=== PATIENT | female | born 1980 | race American Indian/Alaskan Native ===

== ENCOUNTER 2017-09-15 10:37 | Emergency (ER) | payer MEDICAID, OTHER ==
[2017-09-15 10:38] VITALS: BMI 29.0
[2017-09-15 11:02] VITALS: TEMP 98.6; O2SAT 100
[2017-09-15] MEDS ORDERED: Sodium Chloride 0.9% 1,000 ML IV STA (11:30)
[2017-09-15 12:02] LABS: BASO # 0.05 K/mm3 (0.0-2.0); BASO % 0.8 % (0.0-3.0); EOS # 0.1 (0.0-0.7); EOS % 1.7 % (1.5-5.0); GRAN # 2.88 (1.4-6.5); GRAN % 45.4 % (50.0-68.0); HEMATOCRIT 39.3 % (36.0-48.0); LYMPH # 2.9 (1.2-3.4); LYMPH % 46.1 % (22.0-35.0); MEAN CELL VOLUME 80.4 fl (80.0-105.0); MEAN CORPUSCULAR HEMOGLOBIN 25.6 pg (25.0-35.0); MEAN CORPUSCULAR HGB CONC 31.8 g/dl (31.0-37.0); MEAN PLATELET VOLUME 10.3 fl (7.0-11.0); MONO # 0.4 (0.1-0.6); WHITE BLOOD COUNT 6.4 10^3/ul (4.5-11.0)
[2017-09-15 12:12] LABS: ALB/GLOB RATIO 1.2 (1.1-1.8); ALKALINE PHOSPHATASE 75 U/L (38-126); ALT/SGPT 35 U/L (7-56); AST/SGOT 25 U/L (14-36); BILIRUBIN,TOTAL 0.6 mg/dL (0.2-1.3); BLOOD UREA NITROGEN 19 mg/dL (7-21); CALCIUM 9.3 mg/dL (8.4-10.5); CARBON DIOXIDE 31 mmol/L (21-33); CHLORIDE 103 mmol/L (98-107); GFR AFRICAN-AMERICAN > 60; GLUCOSE,RANDOM 96 mg/dL (70-110); POTASSIUM 3.9 mmol/L (3.6-5.0); SODIUM 142 mmol/L (132-148); TOTAL PROTEIN 7.7 g/dL (5.8-8.3)
[2017-09-15 12:25] LABS: INR 1.1 (0.93-1.08); PARTIAL THROMBOPLASTIN TIME 32.1 Seconds (25.1-36.5)
--- NOTE | 2017-09-15 12:39 | ED PDOC ---
Arrival/HPI - General Chief Complaint: GI Problem Time Seen by Provider: 09/15/17 11:30 Historian: Patient - History of Present Illness Narrative History of Present Illness (Text): 09/15/17 12:34 37-year-old female presents today with a 1 week history of intermittent rectal bleeding. Patient states she is noticed on and off for the past week when she has a bowel movement she sees bright red blood on the toilet paper and sometimes on the stool. She denies any rectal pain. Denies abdominal pain. No nausea vomiting dizziness or weakness. Denies chest pain or shortness of breath. Patient denies constipation. Patient denies straining. No other complaints. Time/Duration: 1 week Symptom Course: Intermittent Quality: Other (NO pain) Past Medical History - Provider Review Nursing Documentation Reviewed: Yes - Travel History Have you recently traveled outside [place] w/in the past 3 mons?: No - Past History Past History: No Previous - Infectious Disease Hx of Infectious Diseases: None - Tetanus Immunization Tetanus Immunization: Unknown - Past Medical History Past Medical History: No Previous - Psychiatric Hx Depression: No Hx Substance Use: No - Past Surgical History Past Surgical History: No Previous - Surgical History Hx Section: Yes (x1) - Anesthesia Hx Anesthesia: No - Suicidal Assessment Feels Threatened In Home Enviroment: No Family/Social History - Physician Review Nursing Documentation Reviewed: Yes Family/Social History: Unknown Family HX Smoking Status: Never Smoked Hx Alcohol Use: Yes Frequency of alcohol use: Socially Hx Substance Use: No Hx Substance Use Treatment: No Allergies/Home Meds Allergies/Adverse Reactions: Allergies No Known Allergies Allergy (Verified 09/15/17 11:02) Home Medications: Home Meds Medication Instructions Recorded Confirmed No Known Home Med 09/15/17 09/15/17 Review of Systems - Review of Systems Constitutional: absent: Fatigue, Fevers Respiratory: absent: SOB, Cough Cardiovascular: absent: Chest Pain, Palpitations Gastrointestinal: absent: Abdominal Pain, Constipation, Diarrhea, Nausea, Vomiting Genitourinary Female: absent: Dysuria, Frequency, Hematuria, Vaginal Discharge Musculoskeletal: absent: Arthralgias, Back Pain, Neck Pain Skin: absent: Rash, Pruritis Neurological: absent: Headache, Dizziness Psychiatric: absent: Anxiety, Depression Physical Exam Vital Signs Reviewed: Yes Vital Signs Temp Pulse Resp BP Pulse Ox 09/15/17 12:38 85 17 150/68 100 09/15/17 11:15 151/70 H 09/15/17 10:57 98.6 F 79 16 160/112 H 100 Temperature: Afebrile Blood Pressure: Hypertensive Pulse: Regular Respiratory Rate: Normal Appearance: Positive for: Well-Appearing, Non-Toxic, Comfortable Pain Distress: None Mental Status: Positive for: Alert and Oriented X 3 - Systems Exam Head: Present: Atraumatic Mouth: Present: Moist Mucous Membranes Neck: Present: Normal Range of Motion Respiratory/Chest: Present: Clear to Auscultation, Good Air Exchange. No: Respiratory Distress, Accessory Muscle Use Cardiovascular: Present: Regular Rate and Rhythm, Normal S1, S2. No: Murmurs Abdomen: Present: Normal Bowel Sounds. No: Tenderness, Distention, Peritoneal Signs, Rebound, Guarding Rectal: Present: Hemorrhoids, Normal Rectal Tone, Other (CHAPARONED BY [place]) . No: Occult Blood, Rectal Tenderness, Gross Blood, Melena, Fissures, Nodule/ Mass/Lesions Back: Present: Normal Inspection. No: CVA Tenderness, Midline Tenderness, Paraspinal Tenderness Upper Extremity: Present: Normal ROM Lower Extremity: Present: Normal ROM Neurological: Present: GCS=15 Skin: Present: Warm, Dry, Normal Color. No: Rashes Psychiatric: Present: Alert, Oriented x 3 Medical Decision Making ED Course and Treatment: 09/15/17 12:36 37-year-old female with intermittent rectal bleeding 1 week CBC within normal limits CMP within normal limits Rectal exam: no gross blood, small non tender hemorrhoids noted. pt reassessment; pt is non toxic well appearing; no distress. slightly hypertensive. discussed results in depth with patient; advised f/u with GI specialist. advised immediate return if bleeding continues, dizziness or weakness, abdominal pain or if any other concerning symptoms develop. Impression: rectal bleeding increase fluids Follow up with the GI specialist within the next 2 days regarding your intermittent rectal bleeding Follow up with the primary care physician within the next 2 days return immediately if symptoms worsen,persist or if new symptoms develop; high fevers, abdominal pain, bleeding, dizziness, weakness or if any other concerning symptoms develop. - Lab Interpretations Lab Results: 09/15/17 11:40 09/15/17 11:40 Lab Results 09/15/17 11:40: PT 12.1, INR 1.10 H, APTT 32.1 09/15/17 11:40: WBC 6.4, RBC 4.89, Hgb 12.5, Hct 39.3, MCV 80.4, MCH 25.6, MCHC 31.8, RDW 15.0 H, Plt Count 258, MPV 10.3, Gran % 45.4 L, Lymph % (Auto) 46.1 H , [place] % (Auto) 6.0, Eos % (Auto) 1.7, Baso % (Auto) 0.8, Gran # 2.88, Lymph # 2.9, [place] # 0.4, Eos # 0.1, Baso # 0.05 09/15/17 11:40: Sodium 142, Potassium 3.9, Chloride 103, Carbon Dioxide 31, Anion Gap 11, BUN 19, Creatinine 0.9, Est GFR ( Amer) > 60, Est GFR (Non- Af Amer) > 60, Random Glucose 96, Calcium 9.3, Total Bilirubin 0.6, AST 25, ALT 35, Alkaline Phosphatase 75, Total Protein 7.7, Albumin 4.3, Globulin 3.5, Albumin/Globulin Ratio 1.2 - Medication Orders Current Medication Orders: Discontinued Medications Sodium Chloride (Sodium Chloride 0.9%) 1,000 mls @ 999 mls/hr IV .Q1H1M STA Stop: 09/15/17 12:30 Last Admin: 09/15/17 11:42 Dose: 999 mls/hr eMAR Start Stop Document 09/15/17 11:42 SF (Rec: 09/15/17 11:42 [id number]) Intravenous Solution Start Date 09/15/17 Start Time 11:42 End Date 09/15/17 End time 12:43 Total Infusion Time 61 Disposition/Present on Arrival - Present on Arrival Any Indicators Present on Arrival: No History of DVT/PE: No History of Uncontrolled Diabetes: No Urinary Catheter: No History of Decub. Ulcer: No History Surgical Site Infection Following: None - Disposition Have Diagnosis and Disposition been Completed?: Yes Diagnosis: Rectal bleeding Disposition: HOME/ ROUTINE Disposition Time: 13:28 Patient Plan: Discharge Condition: GOOD Discharge Instructions (ExitCare): Rectal Bleeding (ED) Additional Instructions: increase fluids Follow up with the GI specialist within the next 2 days regarding your intermittent rectal bleeding Follow up with the primary care physician within the next 2 days return immediately if symptoms worsen,persist or if new symptoms develop; high fevers, abdominal pain, bleeding, dizziness, weakness or if any other concerning symptoms develop. Referrals: Madan Lindo MD [Staff Provider] - Follow up with primary Blanca Daniels MD [Staff Provider] - Follow up with primary Forms: [employer] (Vietnamese), WORK NOTE
[2017-09-15 13:46] VITALS: BP 148/70; PULSE 78; RESP 18
== END 2017-09-15 13:46 | disposition home or self-care (01) ==
LOC: ED 10:37
DX: K62.5 Hemorrhage of anus and rectum (principal)
CPT/HCPCS: 80053; 85025; 85610; 85730; 96360; 99285; J7040

== ENCOUNTER 2018-02-09 23:35 | Emergency (ER) | payer SELFPAY ==
[2018-02-09 23:35] VITALS: BMI 29.0
[2018-02-10 00:37] VITALS: RESP 18; TEMP 98.4; O2SAT 100
--- NOTE | 2018-02-10 00:54 | ED PDOC ---
Arrival/HPI - General Chief Complaint: Headache Time Seen by Provider: 02/10/18 00:41 Historian: Patient - History of Present Illness Narrative History of Present Illness (Text): 02/10/18 00:53 A 37 year old female, who denies any past medical history, presents to the emergency department complaining of right sided headache above her eye/ forehead. [place] a little dizzy earlier. Denies having similar headache in the past. Denies hitting her head.States took aleve earlier with some relief.No hx. of any neck or back pain.No fever or chills. Patient denies any other complaints at this time. Symptom Onset: Sudden Symptom Course: Unchanged Activities at Onset: Rest Context: Home Past Medical History - Provider Review Nursing Documentation Reviewed: Yes - Past History Past History: No Previous - Infectious Disease Hx of Infectious Diseases: None - Tetanus Immunization Tetanus Immunization: Unknown - Past Medical History Past Medical History: No Previous - Psychiatric Hx Depression: No Hx Substance Use: No - Past Surgical History Past Surgical History: No Previous - Surgical History Hx Section: Yes (x1) - Anesthesia Hx Anesthesia: No - Suicidal Assessment Feels Threatened In Home Enviroment: No Family/Social History - Physician Review Nursing Documentation Reviewed: Yes Family/Social History: No Known Family HX Smoking Status: Never Smoked Hx Alcohol Use: Yes Frequency of alcohol use: Socially Hx Substance Use: No Hx Substance Use Treatment: No Allergies/Home Meds Allergies/Adverse Reactions: Allergies No Known Allergies Allergy (Verified 02/10/18 00:37) Review of Systems - Physician Review All systems were reviewed & negative as marked: Yes - Review of Systems Constitutional: absent: Fevers Neurological: Headache, Dizziness Physical Exam Vital Signs Reviewed: Yes Vital Signs Temp Pulse Resp BP Pulse Ox 02/10/18 02:02 71 18 138/96 H 100 02/10/18 00:34 98.4 F 80 18 154/114 H 100 Temperature: Afebrile Blood Pressure: Normal Pulse: Regular Respiratory Rate: Normal Appearance: Positive for: Well-Appearing, Non-Toxic, Comfortable Pain Distress: None Mental Status: Positive for: Alert and Oriented X 3 - Systems Exam Head: Present: Atraumatic, Normocephalic Pupils: Present: PERRL Extroacular Muscles: Present: EOMI Conjunctiva: Present: Normal Ears: Present: NORMAL TM Mouth: Present: Moist Mucous Membranes Pharnyx: Present: Normal Neck: Present: Normal Range of Motion. No: Meningeal Signs Respiratory/Chest: Present: Clear to Auscultation, Good Air Exchange. No: Respiratory Distress, Accessory Muscle Use Cardiovascular: Present: Regular Rate and Rhythm, Normal S1, S2. No: Murmurs Abdomen: No: Tenderness, Distention, Peritoneal Signs Back: Present: Normal Inspection Upper Extremity: Present: Normal Inspection. No: Cyanosis, Edema Lower Extremity: Present: Normal Inspection. No: Edema Neurological: Present: GCS=15, CN II-XII Intact, Speech Normal, Motor Func Grossly Intact, Normal Sensory Function, Normal Cerebellar Funct Skin: Present: Warm, Dry, Normal Color. No: Rashes Psychiatric: Present: Alert, Oriented x 3, Normal Insight, Normal Concentration Medical Decision Making ED Course and Treatment: 02/10/18 00:52 Impression: A 37 year old female with headache and dizziness. Plan: -- CT head -- labs -- Tylenol -- Reassess and disposition Progress Notes: 02/10/18 01:49 CT Head Without Intravenous Contrast FINDINGS: Brain: No intracranial hemorrhage. No mass. No definite edema. Benign cerebellar tonsillar ectopia. Ventricles: No hydrocephalus. Bones/joints: No acute fracture. Soft tissues: Unremarkable. Sinuses: No acute sinusitis. Mastoid air cells: No mastoid effusion. Orbits: Unremarkable as visualized. IMPRESSION: 1. No definite acute intracranial abnormality. 2. Incidental/non-acute findings are described above. Dictated and Authenticated by: Unruly Booker MD 02/10/2018 1:45 AM Eastern Time ([place] & [place]) - Lab Interpretations Lab Results: 02/10/18 01:12 02/10/18 01:12 Lab Results 02/10/18 01:12: WBC 7.8 D, RBC 4.80, Hgb 12.3, Hct 37.7, MCV 78.5 L, MCH 25.6, MCHC 32.6, RDW 14.9 H, Plt Count 298, MPV 10.0 02/10/18 01:12: Sodium 141, Potassium 3.6, Chloride 103, Carbon Dioxide 27, Anion Gap 15, BUN 21, Creatinine 0.8, Est GFR ( Amer) > 60, Est GFR (Non- Af Amer) > 60, Random Glucose 96, Calcium 8.8, Total Bilirubin 0.2, AST 26, ALT 17, Alkaline Phosphatase 64, Total Protein 7.5, Albumin 4.3, Globulin 3.2, Albumin/Globulin Ratio 1.3 I have reviewed the lab results: Yes - RAD Interpretation Radiology Orders: 02/10/18 00:49 HEAD W/O CONTRAST [CT] Stat - Medication Orders Current Medication Orders: Sodium Chloride (Sodium Chloride 0.9%) 1,000 mls @ 100 mls/hr IV .Q10H [place] Last Admin: 02/10/18 01:13 Dose: 100 mls/hr eMAR Start Stop Document 02/10/18 01:13 RG (Rec: 02/10/18 01:22 [id number]) Intravenous Solution Start Date 02/10/18 Start Time 01:13 Discontinued Medications Acetaminophen (Tylenol 325mg Tab) 650 mg PO STAT STA Stop: 02/10/18 00:51 Last Admin: 02/10/18 01:09 Dose: 650 mg MAR Pain/Vitals Document 02/10/18 01:09 RG (Rec: 02/10/18 01:22 [id number]) Presence of Pain Presence of Pain Yes Pain Scale Used Pain Scale Used Numeric Location Left, Right or Bilateral Right Pain Location Body Site Eye Description Pressure Intensity 4 Scale Used Numeric Pain Behavior Rubbing Site - Scribe Statement The provider has reviewed the documentation as recorded by the Braulio Arellano Provider Scribe Attestation: All medical record entries made by the Scribe were at my direction and personally dictated by me. I have reviewed the chart and agree that the record accurately reflects my personal performance of the history, physical exam, medical decision making, and the department course for this patient. I have also personally directed, reviewed, and agree with the discharge instructions and disposition. Disposition/Present on Arrival - Present on Arrival Any Indicators Present on Arrival: No History of DVT/PE: No History of Uncontrolled Diabetes: No Urinary Catheter: No History of Decub. Ulcer: No History Surgical Site Infection Following: None - Disposition Have Diagnosis and Disposition been Completed?: Yes Diagnosis: Headache Disposition: HOME/ ROUTINE Disposition Time: 02:32 Patient Plan: Discharge Patient Problems: Current Active Problems Problem Status Onset Headache Acute Condition: GOOD Discharge Instructions (ExitCare): Headache, Adult (DC) Additional Instructions: Rest/no strenuous physical activity/take meds as prescribed/follow up with your doctor this week Prescriptions: Acetaminophen/Butalbital/Caf [Fioricet] 1 tab PO Q6 PRN #16 tab PRN Reason: Headache Referrals: Davi Vincent MD [Staff Provider] - Follow up with primary Forms: [employer] (Z[place]ian)
[2018-02-10] MEDS ORDERED: Sodium Chloride 0.9% 1,000 ML IV SCH (01:00)
[2018-02-10 01:24] LABS: HEMOGLOBIN 12.3 g/dL (12.0-16.0); MEAN CELL VOLUME 78.5 fl (80.0-105.0); MEAN CORPUSCULAR HEMOGLOBIN 25.6 pg (25.0-35.0); MEAN CORPUSCULAR HGB CONC 32.6 g/dl (31.0-37.0); RBC 4.8 10^6/uL (3.5-6.1); RED CELL DISTRIBUTION WIDTH 14.9 % (11.5-14.5); WHITE BLOOD COUNT 7.8 10^3/ul (4.5-11.0)
[2018-02-10 01:38] LABS: ALB/GLOB RATIO 1.3 (1.1-1.8); ALBUMIN 4.3 g/dL (3.0-4.8); ALT/SGPT 17 U/L (7-56); AST/SGOT 26 U/L (14-36); BLOOD UREA NITROGEN 21 mg/dL (7-21); CALCIUM 8.8 mg/dL (8.4-10.5); GFR AFRICAN-AMERICAN > 60; GFR NON-AFRICAN AMERICAN > 60
--- NOTE | 2018-02-10 01:46 | CT ---
EXAM: CT Head Without Intravenous Contrast CLINICAL HISTORY: 37 years old, female; Pain; Headache; Additional info: Headache/dizzy TECHNIQUE: Axial computed tomography images of the head/brain without intravenous contrast. All CT scans at this facility use one or more dose reduction techniques, viz.: automated exposure control; ma/kV adjustment per patient size (including targeted exams where dose is matched to indication; i.e. head); or iterative reconstruction technique. Coronal and sagittal reformatted images were created and reviewed. COMPARISON: No relevant prior studies available. FINDINGS: Brain: No intracranial hemorrhage. No mass. No definite edema. Benign cerebellar tonsillar ectopia. Ventricles: No hydrocephalus. Bones/joints: No acute fracture. Soft tissues: Unremarkable. Sinuses: No acute sinusitis. Mastoid air cells: No mastoid effusion. Orbits: Unremarkable as visualized. IMPRESSION: 1. No definite acute intracranial abnormality. 2. Incidental/non-acute findings are described above.
[2018-02-10 02:32] VITALS: BP 138/96; PULSE 71
== END 2018-02-10 02:36 | disposition home or self-care (01) ==
LOC: ED 23:35
DX: R51 Headache (principal)
CPT/HCPCS: 70450; 80053; 85027; 99285; J7040